=== PATIENT | female | born 1990 | race Hispanic/Latino ===

== ENCOUNTER 2022-01-26 23:10 | Emergency (ER) | payer SELFPAY ==
[~2022-01-26] VITALS: Ht 160 cm; Wt 77.1 kg
[2022-01-27] MEDS ORDERED: TAMIFLU75 MG PO (00:02)
== END 2022-01-27 00:14 | disposition home or self-care (01) ==
LOC: FSED 23:17
DX: R05.9 Cough, unspecified (principal); J10.1 Influenza due to other identified influenza virus with other respiratory manifestations
CPT/HCPCS: 83518; 87400; 99283